=== PATIENT | female | born 1995 | race Caucasian/White ===

== ENCOUNTER 2017-07-09 21:22 | Emergency (ER) | payer MEDICAID, OTHER ==
[~2017-07-09] VITALS: Ht 162.6 cm; Wt 59.0 kg
[~2017-07-09 21:22] MED LIST: ALBU8.5H2 IH
--- NOTE | 2017-07-09 21:30 | NUR ---
BIB MOTHER, C/O SUDDEN ONSET OF LEFT BREAST PAIN X 4 DAYS. DENIES TRAUMA. PATIENT AMBULATED TO ER BED WITH STEADY GAIT, SKIN WARM AND DRY, RESP EVEN AND UNLABORED. AWAITING ORDERS FROM PROVIDER
--- NOTE | 2017-07-09 22:00 | NUR ---
MEDICATED PT ORDERED
[2017-07-09] MEDS ORDERED: IBUPROFEN 600 MG TABLET PO ONE ×2 (22:13→22:30)
--- NOTE | 2017-07-09 22:16 | NUR ---
Patient discharged to home in stable condition. Written and verbal after care instructions given. Patient verbalizes understanding of instruction. PT ambulatory with a steady gait VITAL SIGNS WITHIN NORMAL LIMITS.
[2017-07-09 22:19] VITALS: BP 125/75
== END 2017-07-09 22:20 | disposition home or self-care (01) ==
LOC: ER 21:25
DX: N64.4 Mastodynia (principal)
CPT/HCPCS: A4606; Z7502; Z7610